=== PATIENT | female | born 1980 | race Two or more races ===

== ENCOUNTER 2016-11-08 13:26 | Emergency (ER) | payer SELFPAY ==
[~2016-11-08] VITALS: Ht 165.1 cm; Wt 81.6 kg
[~2016-11-08 13:26] MED LIST: ESOM20CA PO; IBUP400T21 PO; TRAM50TA2 PO
[2016-11-08 13:39] VITALS: BP 136/84
[2016-11-08 14:38] LABS: Basophils # (auto) 0 uL; Basophils % (auto) 0.2 % (0.0-2.0); Eosinophils # (auto) 0.1 uL; Hematocrit 41.5 % (36.0-46.0); Hemoglobin 13.6 g/dL (12.2-16.2); Lymphocytes # (auto) 2.1 uL; Mean Corpuscular Hemoglobin 29.4 pg (28.0-32.0); Mean Corpuscular Hgb Conc. 32.9 g/dL (32.0-36.0); Mean Corpuscular Volume 89.5 fL (80.0-100.0); Mean Platelet Volume 9.1 fL (7.4-10.4); Monocytes # (auto) 0.3 uL; Monocytes % (auto) 4.2 % (0.0-12.0); Neutrophils # (auto) 5.6 uL; Neutrophils % (auto) 68.6 % (37.0-80.0); Platelet Count (auto) 317 10^3/uL (140-450); Red Cell Distribution Width 15.1 % (11.6-16.0); White Blood Cell 8.1 10^3/uL (4.4-10.8)
[2016-11-08 15:16] LABS: Albumin 3.7 g/dL (3.4-5.0)
[2016-11-08 15:22] LABS: BUN/Creatinine Ratio 15.2; Bilirubin, Total 0.2 mg/dL (0.2-1.0); Total Protein 7.7 g/dL (6.4-8.2)
[2016-11-08] MEDS ORDERED: KETOROLAC TROMETH 60MG/2ML VIAL IM ONE (15:30)
== END 2016-11-08 16:13 | disposition home or self-care (01) ==
LOC: ER 13:26
DX: N20.0 Calculus of kidney (principal); K43.9 Ventral hernia without obstruction or gangrene; Z90.49 Acquired absence of other specified parts of digestive tract
CPT/HCPCS: 36415; 74176; 80053; 84702; 85025; 96372; 99285; J1885

== ENCOUNTER 2016-12-19 22:11 | Emergency (ER) | payer SELFPAY ==
[~2016-12-19] VITALS: Ht 165.1 cm; Wt 72.6 kg
[2016-12-20 01:17] LABS: Basophils # (auto) 0.6 uL; Basophils % (auto) 4.1 % (0.0-2.0); DEFINITIVE VIEW TRANSMISSION; Eosinophils # (auto) 0 uL; Eosinophils % (auto) 0.3 % (0.0-7.0); Hematocrit 43.9 % (36.0-46.0); Hemoglobin 14.4 g/dL (12.2-16.2); Lymphocytes # (auto) 1.9 uL; Lymphocytes % (auto) 12.1 % (10.0-50.0); Mean Corpuscular Hemoglobin 29.2 pg (28.0-32.0); Mean Corpuscular Hgb Conc. 32.8 g/dL (32.0-36.0); Mean Platelet Volume 8.7 fL (7.4-10.4); Monocytes # (auto) 0.8 uL; Neutrophils # (auto) 12.3 uL; Neutrophils % (auto) 78.5 % (37.0-80.0); Platelet Count (auto) 294 10^3/uL (140-450); Red Cell Distribution Width 13.5 % (11.6-16.0); SUSPECT VIEW TRANSMISSION; White Blood Cell 15.6 10^3/uL (4.4-10.8)
[2016-12-20 01:38] LABS: BUN/Creatinine Ratio 10.8; Bilirubin, Total 0.7 mg/dL (0.2-1.0); Calcium 8.6 mg/dL (8.5-10.1); Potassium 3.6 mmol/L (3.5-5.1); Total Protein 8.1 g/dL (6.4-8.2)
[2016-12-20 02:30] LABS: Urine Bilirubin Negative (Negative); Urine Color Yellow (Yellow); Urine Glucose Normal (Normal); Urine Ketone Negative (Negative); Urine Mucus FEW (None Seen); Urine RBC 165 /hpf (0 - 4); Urine Squamous Epithelial Cell FEW /hpf (<5); Urine Urobilinogen Normal (Negative); Urine WBC Clumps PRESENT /hpf (None Seen); Urine pH 5.5 (5.0-8.0)
[2016-12-20 02:33] LABS: Urine Blood 2+ /uL (Negative); Urine Nitrite POSITIVE (Negative)
[2016-12-20] MEDS ORDERED: NITROFURANTOIN (MONO) 100 mg CAP PO ONE (03:30)
[2016-12-20 03:46] VITALS: BP 122/68
== END 2016-12-20 03:47 | disposition home or self-care (01) ==
LOC: ER 22:12
DX: N39.0 Urinary tract infection, site not specified (principal); R06.02 Shortness of breath; R11.0 Nausea; Z90.49 Acquired absence of other specified parts of digestive tract
CPT/HCPCS: 36415; 80053; 81001; 82150; 83690; 84702; 85025

== ENCOUNTER 2017-02-05 08:05 | Inpatient (IN) | payer MEDICAID, OTHER ==
[~2017-02-05] VITALS: Ht 165.1 cm; Wt 94.0 kg
[2017-02-05 09:19] LABS: Urine Bilirubin Negative (Negative); Urine Blood Negative /uL (Negative); Urine Color Yellow (Yellow); Urine Glucose Normal (Normal); Urine Ketone Negative (Negative); Urine Nitrite Negative (Negative); Urine RBC 1 /hpf (0 - 4); Urine Squamous Epithelial Cell FEW /hpf (<5); Urine Urobilinogen Normal (Negative); Urine pH 5.5 (5.0-8.0)
[2017-02-05 09:42] LABS: Basophils # (auto) 0 uL; Basophils % (auto) 0.4 % (0.0-2.0); Eosinophils # (auto) 0.1 uL; Eosinophils % (auto) 1.8 % (0.0-7.0); Hematocrit 42.4 % (36.0-46.0); Hemoglobin 13.9 g/dL (12.2-16.2); Lymphocytes # (auto) 1.7 uL; Lymphocytes % (auto) 26.8 % (10.0-50.0); Mean Corpuscular Hgb Conc. 32.8 g/dL (32.0-36.0); Mean Corpuscular Volume 91.4 fL (80.0-100.0); Mean Platelet Volume 9.1 fL (7.4-10.4); Monocytes # (auto) 0.4 uL; Monocytes % (auto) 5.9 % (0.0-12.0); Neutrophils # (auto) 4.1 uL; Neutrophils % (auto) 65.1 % (37.0-80.0); Platelet Count (auto) 356 10^3/uL (140-450); Red Cell Distribution Width 14.9 % (11.6-16.0); White Blood Cell 6.3 10^3/uL (4.4-10.8)
[2017-02-05 10:08] LABS: Albumin 3.6 g/dL (3.4-5.0); BUN/Creatinine Ratio 15.9; Calcium 8.2 mg/dL (8.5-10.1); Potassium 4.2 mmol/L (3.5-5.1)
[2017-02-05 10:10] LABS: Bilirubin, Total 0.4 mg/dL (0.2-1.0); Total Protein 7.7 g/dL (6.4-8.2)
[2017-02-05] MEDS ORDERED: CIPROFLOXACIN 400MG/200ML 200 ML IV ONE (10:15)
[2017-02-05] MEDS ORDERED: ACETAMINOPHEN 500 MG TAB PO PRN (11:15)
[2017-02-05] MEDS ORDERED: PROMETHAZINE HCL 25 MG/ML 1ML IV PRN (11:15)
[2017-02-05] MEDS ORDERED: LORazepam 0.5 MG TAB PO PRN (11:15)
[2017-02-05] MEDS ORDERED: NITROGLYCERIN 0.4 MG SL TAB SL PRN (11:15)
[2017-02-05] MEDS ORDERED: cefTRIAXone 1GM/50ML D5W 50 ML IV ONE (11:15)
[2017-02-05] MEDS ORDERED: MORPHINE SULF INJ 2 MG/ML SYRINGE 1ML IV PRN (11:15)
[2017-02-05 11:16] LABS: INR 0.9 (0.9-1.15); Prothrombin Time 9.8 sec (9.37-12.3)
[2017-02-05] MEDS: SODIUM CHLORIDE 0.9% 1,000 ML IV SCH ×2 (11:59→21:38)
[2017-02-05] MEDS: FAMOTIDINE (10MG/ML) 2ML VL IV SCH ×2 (11:59→23:43)
[2017-02-05 12:03] LABS: Amylase 19 U/L (25-115)
[2017-02-05 20:30] VITALS: BP 125/74
[2017-02-05] MEDS: MORPHINE SULF INJ 2 MG/ML SYRINGE 1ML IV PRN (21:11)
[2017-02-06 05:11] VITALS: BP 124/71
[2017-02-06] MEDS: MORPHINE SULF INJ 2 MG/ML SYRINGE 1ML IV PRN ×3 (06:38→21:28)
[2017-02-06] MEDS: SODIUM CHLORIDE 0.9% 1,000 ML IV SCH ×2 (06:38→17:15)
[2017-02-06] MEDS ORDERED: ceFAZolin 1GM/50ML D5W 50 ML IV ONE (06:58)
[2017-02-06] MEDS ORDERED: DEXAMETHASONE SOD PHOS 10MG/1ML VIAL INJ ONE (07:21)
[2017-02-06] MEDS ORDERED: ONDANSETRON HCL 4 MG/2 ML VIAL ONE (07:21)
[2017-02-06] MEDS ORDERED: MIDAZOLAM HCL 1MG/1ML-2 ML VIAL ONE (07:21)
[2017-02-06] MEDS ORDERED: fentaNYL CITRATE 100 MCG/2 ML VL ONE (07:21)
[2017-02-06] MEDS ORDERED: KETOROLAC TROMETH 60MG/2ML VIAL IM ONE (07:21)
[2017-02-06] MEDS ORDERED: LIDOCAINE HCL 2 %PF INJ 10ML AMP IJ ONE (07:21)
[2017-02-06] MEDS ORDERED: PROPOFOL 10 MG/ML 20 ML IV ONE (07:21)
[2017-02-06] MEDS ORDERED: GLYCOPYRROLATE 0.2 MG/ML 1ML VIAL IV ONE (07:57)
[2017-02-06] MEDS ORDERED: NEOSTIGMINE 1 MG/ML INJ (10mg/10ML VIAL) IV ONE (07:57)
[2017-02-06 08:00] VITALS: BP 139/88
[2017-02-06] MEDS ORDERED: BUPIVACAINE W/ EPINEPH 0.25% INJ 50ML MDV ONE (08:06)
[2017-02-06] MEDS ORDERED: HYDROmorphone HCL 2 MG/ML VL ONE (09:06)
[2017-02-06] MEDS: HYDROmorphone HCL 2 MG/ML VL IV PRN ×5 (09:10→13:16)
[2017-02-06] MEDS ORDERED: ONDANSETRON HCL 4 MG/2 ML VIAL IV ONE (09:30)
[2017-02-06] MEDS ORDERED: LABETALOL HCL 5 MG/ML 4ML SYRINGE IV PRN (09:30)
[2017-02-06] MEDS ORDERED: KETOROLAC TROMETH 30 MG/ML 1ML VIAL ONE (09:31)
[2017-02-06] MEDS: cefTRIAXone 1GM/50ML D5W 50 ML IV SCH (10:32)
[2017-02-06] MEDS: FAMOTIDINE (10MG/ML) 2ML VL IV SCH (11:06)
[2017-02-06 13:00] VITALS: BP 138/79
[2017-02-06 17:00] VITALS: BP 128/71
[2017-02-06] MEDS: HYDROcodone-ACET 5/325MG TAB PO PRN (18:54)
[2017-02-06 21:30] VITALS: BP 119/61
[2017-02-06] MEDS ORDERED: KETOROLAC TROMETH 30 MG/ML 1ML VIAL IV ONE (21:45)
[2017-02-06] MEDS: TEMAZEPAM 15 MG CAP PO PRN (22:32)
[2017-02-07] MEDS: FAMOTIDINE (10MG/ML) 2ML VL IV SCH ×3 (00:31→22:32)
[2017-02-07] MEDS: HYDROcodone-ACET 5/325MG TAB PO PRN ×3 (00:36→14:41)
[2017-02-07] MEDS: MORPHINE SULF INJ 2 MG/ML SYRINGE 1ML IV PRN ×4 (02:59→18:43)
[2017-02-07] MEDS: SODIUM CHLORIDE 0.9% 1,000 ML IV SCH ×3 (03:28→23:15)
[2017-02-07 05:00] VITALS: BP 103/40
[2017-02-07 05:53] LABS: Basophils # (auto) 0 uL; Basophils % (auto) 0.2 % (0.0-2.0); Eosinophils # (auto) 0 uL; Hematocrit 35.5 % (36.0-46.0); Hemoglobin 11.8 g/dL (12.2-16.2); Lymphocytes # (auto) 1.4 uL; Lymphocytes % (auto) 12.3 % (10.0-50.0); Mean Corpuscular Hemoglobin 30.1 pg (28.0-32.0); Mean Corpuscular Hgb Conc. 33.2 g/dL (32.0-36.0); Mean Corpuscular Volume 90.6 fL (80.0-100.0); Mean Platelet Volume 8.7 fL (7.4-10.4); Monocytes # (auto) 0.4 uL; Monocytes % (auto) 3.3 % (0.0-12.0); Neutrophils # (auto) 9.3 uL; Neutrophils % (auto) 84.2 % (37.0-80.0); Platelet Count (auto) 348 10^3/uL (140-450); Red Cell Distribution Width 14.7 % (11.6-16.0); White Blood Cell 11.1 10^3/uL (4.4-10.8)
[2017-02-07 06:12] LABS: BUN/Creatinine Ratio 19.6; Calcium 7.6 mg/dL (8.5-10.1); Magnesium 2.5 mg/dL (1.6-2.6); Potassium 3.9 mmol/L (3.5-5.1)
[2017-02-07 08:00] VITALS: BP 121/80
[2017-02-07] MEDS: cefTRIAXone 1GM/50ML D5W 50 ML IV SCH (08:04)
[2017-02-07 09:00] VITALS: BP 121/80
[2017-02-07 13:00] VITALS: BP 131/71
[2017-02-07] MEDS: KETOROLAC TROMETH 30 MG/ML 1ML VIAL IV PRN ×2 (16:05→20:17)
[2017-02-07 16:41] VITALS: BP 111/56
[2017-02-07] MEDS: ERTAPENEM SOD INJ 1 GM in SODIUM CHL 0.9% 50 ML IV SCH (20:00)
[2017-02-07 22:10] VITALS: BP 134/80
[2017-02-07] MEDS: MORPHINE SULFATE 4 MG/ML SYRG IV PRN (22:30)
[2017-02-08] MEDS: TEMAZEPAM 15 MG CAP PO PRN ×2 (00:37→22:45)
[2017-02-08 04:44] VITALS: BP 93/54
[2017-02-08] MEDS: MORPHINE SULFATE 4 MG/ML SYRG IV PRN ×3 (06:32→20:00)
[2017-02-08 08:59] VITALS: BP 114/75
[2017-02-08] MEDS: SODIUM CHLORIDE 0.9% 1,000 ML IV SCH ×2 (09:15→20:01)
[2017-02-08] MEDS: HYDROcodone-ACET 5/325MG TAB PO PRN (10:24)
[2017-02-08] MEDS: FAMOTIDINE (10MG/ML) 2ML VL IV SCH ×2 (10:25→22:46)
[2017-02-08] MEDS ORDERED: DOCUSATE SOD 100 MG CAP PO PRN (10:30)
[2017-02-08 13:00] VITALS: BP 129/79
[2017-02-08 16:44] VITALS: BP 111/67
[2017-02-08] MEDS: ERTAPENEM SOD INJ 1 GM in SODIUM CHL 0.9% 50 ML IV SCH (20:01)
[2017-02-08 20:27] VITALS: BP 111/67
[2017-02-08 21:53] VITALS: BP 139/80
[2017-02-08] MEDS: KETOROLAC TROMETH 30 MG/ML 1ML VIAL IV PRN (22:46)
[2017-02-09 04:48] VITALS: BP 96/56
[2017-02-09] MEDS: MORPHINE SULFATE 4 MG/ML SYRG IV PRN (05:52)
[2017-02-09] MEDS: SODIUM CHLORIDE 0.9% 1,000 ML IV SCH (05:52)
[2017-02-09 08:00] VITALS: BP 121/79
[2017-02-09 09:00] VITALS: BP 121/79
[2017-02-09 11:01] VITALS: BP 121/79
[2017-02-09] MEDS: FAMOTIDINE (10MG/ML) 2ML VL IV SCH (11:01)
[2017-02-09] MEDS ORDERED: NITR-48 PO (11:22)
== END 2017-02-09 12:50 | disposition home or self-care (01) | DRG 354 ==
LOC: ER 08:10 → TELE 08:11 → TELE-WESTW 20:15 → WEST WING 02-08 06:14
PROVIDERS: ADMIT Internal Medicine; ATTEND Internal Medicine
PROC: 0WQF0ZZ Repair Abdominal Wall, Open Approach (ICD-10-PCS; principal; 2017-02-06 07:57)
DX: K43.9 Ventral hernia without obstruction or gangrene (principal); N39.0 Urinary tract infection, site not specified; B96.20 Unspecified Escherichia coli [E. coli] as the cause of diseases classified elsewhere; Z16.12 Extended spectrum beta lactamase (ESBL) resistance; K42.9 Umbilical hernia without obstruction or gangrene; Z80.3 Family history of malignant neoplasm of breast; Z90.49 Acquired absence of other specified parts of digestive tract; Z82.49 Family history of ischemic heart disease and other diseases of the circulatory system; Z83.3 Family history of diabetes mellitus
CPT/HCPCS: 36415; 71010; 80048; 80053; 81001; 81025; 82150; 83690; 83735; 85025; 85610; 86850; 86900; 86901; 87040; 87086; 87088; 87186; 96365; 96368; J0690; J0696; J1100; J1335; J1885; J2250; J2405; J2704; J3490

== ENCOUNTER 2017-06-15 09:38 | Emergency (ER) | payer MEDICAID ==
[~2017-06-15] VITALS: Ht 165.1 cm; Wt 88.5 kg
[~2017-06-15 09:38] MED LIST changes: -ESOM20CA PO; -IBUP400T21 PO; +NITR-48 PO; -TRAM50TA2 PO
[2017-06-15 09:52] VITALS: BP 136/78
[2017-06-15 10:47] LABS: Basophils # (auto) 0 uL; Basophils % (auto) 0.5 % (0.0-2.0); Eosinophils # (auto) 0.1 uL; Eosinophils % (auto) 1.1 % (0.0-7.0); Hematocrit 40.8 % (36.0-46.0); Hemoglobin 13.2 g/dL (12.2-16.2); Lymphocytes # (auto) 2.2 uL; Lymphocytes % (auto) 26.2 % (10.0-50.0); Mean Corpuscular Hgb Conc. 32.5 g/dL (32.0-36.0); Mean Corpuscular Volume 92.4 fL (80.0-100.0); Mean Platelet Volume 9.5 fL (6.9-10.8); Monocytes # (auto) 0.5 uL; Monocytes % (auto) 6.3 % (0.0-12.0); Neutrophils # (auto) 5.6 uL; Neutrophils % (auto) 65.9 % (37.0-80.0); Nucleated Red Blood Cells % 0.4 %; Platelet Count (auto) 255 10^3/uL (140-450); Red Cell Distribution Width 13.6 % (11.8-14.3); White Blood Cell 8.5 10^3/uL (4.4-10.8)
[2017-06-15 11:12] LABS: Albumin 3.5 g/dL (3.4-5.0); BUN/Creatinine Ratio 13.2; Calcium 8.3 mg/dL (8.5-10.1); Potassium 3.9 mmol/L (3.5-5.1)
[2017-06-15 11:15] LABS: Bilirubin, Total 0.3 mg/dL (0.2-1.0); Total Protein 7.2 g/dL (6.4-8.2)
[2017-06-15] MEDS ORDERED: SODIUM CHLORIDE 0.9% 1,000 ML IV ONE (11:15)
[2017-06-15 11:19] LABS: Platelet Clumps FEW; Platelet Estimate Adequate
== END 2017-06-15 14:48 | disposition home or self-care (01) ==
LOC: ER 09:38
DX: M79.604 Pain in right leg (principal); O26.891 Other specified pregnancy related conditions, first trimester; M79.605 Pain in left leg
CPT/HCPCS: 36415; 80053; 84702; 85025; 96360; 99284; J7030

== ENCOUNTER 2017-06-21 02:42 | Emergency (ER) | payer MEDICAID ==
[~2017-06-21] VITALS: Ht 165.1 cm; Wt 90.3 kg
[2017-06-21 02:51] VITALS: BP 134/72
[2017-06-21 04:08] LABS: Basophils # (auto) 0 uL; Basophils % (auto) 0.3 % (0.0-2.0); Eosinophils # (auto) 0.1 uL; Hematocrit 40.9 % (36.0-46.0); Hemoglobin 13.5 g/dL (12.2-16.2); Lymphocytes # (auto) 2.2 uL; Lymphocytes % (auto) 24.5 % (10.0-50.0); Mean Corpuscular Hemoglobin 29.8 pg (28.0-32.0); Mean Corpuscular Hgb Conc. 32.9 g/dL (32.0-36.0); Mean Corpuscular Volume 90.6 fL (80.0-100.0); Mean Platelet Volume 8.8 fL (6.9-10.8); Monocytes # (auto) 0.5 uL; Monocytes % (auto) 5.9 % (0.0-12.0); Neutrophils # (auto) 6.2 uL; Neutrophils % (auto) 68.3 % (37.0-80.0); Platelet Count (auto) 262 10^3/uL (140-450); Red Cell Distribution Width 13.6 % (11.8-14.3); White Blood Cell 9.1 10^3/uL (4.4-10.8)
[2017-06-21 04:44] LABS: Albumin 3.6 g/dL (3.4-5.0); Alkaline Phosphatase 70 U/L (45-117); Anion Gap 11 (5-15); Aspartate Aminotransferase 16 U/L (15-37); BUN/Creatinine Ratio 15.6; Bilirubin, Total 0.3 mg/dL (0.2-1.0); Blood Urea Nitrogen 10 mg/dL (7-18); Calcium 8.8 mg/dL (8.5-10.1); Carbon Dioxide 24 mmol/L (21-32); Chloride 105 mmol/L (98-107); GFR African American 135 mL/min; GFR Non-African American 112 mL/min; Glucose 124 mg/dL (74-106); Magnesium 2.1 mg/dL (1.6-2.6); Potassium 3.7 mmol/L (3.5-5.1); Sodium 140 mmol/L (136-145); Total Protein 7.5 g/dL (6.4-8.2)
== END 2017-06-21 06:43 | disposition left against medical advice (07) ==
LOC: ER 02:44
DX: O26.891 Other specified pregnancy related conditions, first trimester (principal); R00.2 Palpitations; R07.89 Other chest pain; Z53.21 Procedure and treatment not carried out due to patient leaving prior to being seen by health care provider; Z3A.01 Less than 8 weeks gestation of pregnancy
CPT/HCPCS: 36415; 80053; 83735; 84443; 84484; 84702; 85025; 93005

== ENCOUNTER 2017-07-29 17:03 | Emergency (ER) | payer MEDICAID ==
[~2017-07-29] VITALS: Ht 165.1 cm; Wt 89.8 kg
[2017-07-29 17:27] VITALS: BP 124/71
[2017-07-29 17:56] LABS: Basophils # (auto) 0.1 uL; Basophils % (auto) 0.7 % (0.0-2.0); Eosinophils # (auto) 0 uL; Eosinophils % (auto) 0.3 % (0.0-7.0); Hematocrit 40.4 % (36.0-46.0); Hemoglobin 13.3 g/dL (12.2-16.2); Lymphocytes # (auto) 1.3 uL; Lymphocytes % (auto) 12.5 % (10.0-50.0); Mean Corpuscular Hemoglobin 29.6 pg (28.0-32.0); Mean Corpuscular Volume 89.7 fL (80.0-100.0); Monocytes # (auto) 0.5 uL; Neutrophils # (auto) 8.3 uL; Neutrophils % (auto) 81.5 % (37.0-80.0); Platelet Count (auto) 237 10^3/uL (140-450); Red Cell Distribution Width 12.9 % (11.8-14.3); White Blood Cell 10.2 10^3/uL (4.4-10.8)
[2017-07-29 18:19] LABS: Albumin 3.4 g/dL (3.4-5.0); Alkaline Phosphatase 69 U/L (45-117); Anion Gap 11 (5-15); Aspartate Aminotransferase 7 U/L (15-37); BUN/Creatinine Ratio 7.8; Bilirubin, Total 0.4 mg/dL (0.2-1.0); Blood Urea Nitrogen 4 mg/dL (7-18); Calcium 8.6 mg/dL (8.5-10.1); Carbon Dioxide 21 mmol/L (21-32); Chloride 103 mmol/L (98-107); GFR African American 175 mL/min; GFR Non-African American 145 mL/min; Glucose 113 mg/dL (74-106); Potassium 3.4 mmol/L (3.5-5.1); Sodium 135 mmol/L (136-145); Total Protein 7.7 g/dL (6.4-8.2)
[2017-07-29 19:35] LABS: Urine Bilirubin Negative (Negative); Urine Blood Negative /uL (Negative); Urine Color Yellow (Yellow); Urine Glucose Normal (Normal); Urine Ketone 3+ (Negative); Urine Mucus FEW (None Seen); Urine Nitrite POSITIVE (Negative); Urine RBC 7 /hpf (0 - 4); Urine Squamous Epithelial Cell FEW /hpf (<5); Urine Urobilinogen Normal (Negative); Urine pH 5.5 (5.0-8.0)
[2017-07-29] MEDS ORDERED: ONDANSETRON HCL 4 MG/2 ML VIAL IV ONE (19:45)
[2017-07-29] MEDS ORDERED: SODIUM CHLORIDE 0.9% 1,000 ML IV ONE ×2 (19:45)
[2017-07-29] MEDS ORDERED: PIPERACILLIN-TAZOB 3.375GM 0 ML IV ONE (19:54)
[2017-07-29] MEDS ORDERED: PIPERACILLIN-TAZOB 2.25GM 50 ML IV ONE ×2 (20:00)
== END 2017-07-29 22:08 | disposition home or self-care (01) ==
LOC: ER 17:08
DX: O23.41 Unspecified infection of urinary tract in pregnancy, first trimester (principal); O09.521 Supervision of elderly multigravida, first trimester; O99.281 Endocrine, nutritional and metabolic diseases complicating pregnancy, first trimester; E86.0 Dehydration; O99.89 Other specified diseases and conditions complicating pregnancy, childbirth and the puerperium; N13.30 Unspecified hydronephrosis; Z3A.13 13 weeks gestation of pregnancy
CPT/HCPCS: 36415; 76801; 80053; 81001; 84484; 84702; 85025; 96365; 96366; 99285; J2543; J7030

== ENCOUNTER 2017-08-27 10:32 | Emergency (ER) | payer MEDICAID ==
[~2017-08-27] VITALS: Ht 165.1 cm; Wt 89.4 kg
[2017-08-27 11:11] LABS: Basophils # (auto) 0 uL; Basophils % (auto) 0.1 % (0.0-2.0); Eosinophils # (auto) 0.1 uL; Eosinophils % (auto) 0.5 % (0.0-7.0); Hematocrit 40.4 % (36.0-46.0); Hemoglobin 13.2 g/dL (12.2-16.2); Lymphocytes # (auto) 1.6 uL; Lymphocytes % (auto) 16.9 % (10.0-50.0); Mean Corpuscular Hemoglobin 28.6 pg (28.0-32.0); Mean Corpuscular Hgb Conc. 32.6 g/dL (32.0-36.0); Mean Corpuscular Volume 87.6 fL (80.0-100.0); Monocytes # (auto) 0.3 uL; Monocytes % (auto) 3.5 % (0.0-12.0); Neutrophils # (auto) 7.5 uL; Platelet Count (auto) 387 10^3/uL (140-450); Red Blood Cells 4.61 10^6/uL (4.0-5.20); Red Cell Distribution Width 13.4 % (11.8-14.3); White Blood Cell 9.5 10^3/uL (4.4-10.8)
[2017-08-27 11:28] LABS: Albumin 3.1 g/dL (3.4-5.0); BUN/Creatinine Ratio 9.6; Bilirubin, Total 0.3 mg/dL (0.2-1.0); Calcium 8.5 mg/dL (8.5-10.1); Potassium 3.8 mmol/L (3.5-5.1); Total Protein 7.3 g/dL (6.4-8.2)
[2017-08-27 12:00] LABS: Urine Bacteria NONE SEEN /hpf (None Seen); Urine Blood Negative /uL (Negative); Urine Mucus FEW (None Seen); Urine Specific Gravity 1.015 (1.001-1.035); Urine WBC 2 /hpf (0 - 5)
[2017-08-27 12:45] VITALS: BP 116/74
[2017-09-26] MEDS ORDERED: PREN-96 PO (06:44)
[2017-09-29] MEDS ORDERED: VANC125PO PO (09:10)
== END 2017-08-27 13:50 | disposition home or self-care (01) ==
LOC: ER 10:32
DX: O00.90 Unspecified ectopic pregnancy without intrauterine pregnancy (principal); O09.522 Supervision of elderly multigravida, second trimester; Z45.2 Encounter for adjustment and management of vascular access device; Z3A.16 16 weeks gestation of pregnancy
CPT/HCPCS: 36415; 80053; 81001; 85025; 87086

== ENCOUNTER 2017-09-02 22:15 | Observation (INO) | payer MEDICAID ==
[~2017-09-02] VITALS: Ht 165.1 cm; Wt 89.4 kg
[2017-09-02 23:46] LABS: Basophils # (auto) 0 uL; Basophils % (auto) 0.2 % (0.0-2.0); Eosinophils # (auto) 0.1 uL; Eosinophils % (auto) 1.4 % (0.0-7.0); Hemoglobin 11.9 g/dL (12.2-16.2); Lymphocytes # (auto) 1.8 uL; Lymphocytes % (auto) 21.6 % (10.0-50.0); Mean Corpuscular Hemoglobin 28.5 pg (28.0-32.0); Mean Corpuscular Hgb Conc. 33.1 g/dL (32.0-36.0); Mean Corpuscular Volume 85.9 fL (80.0-100.0); Monocytes # (auto) 0.4 uL; Monocytes % (auto) 5.3 % (0.0-12.0); Neutrophils # (auto) 6.1 uL; Neutrophils % (auto) 71.5 % (37.0-80.0); Nucleated Red Blood Cells % 0.1 %; Platelet Count (auto) 281 10^3/uL (140-450); Red Blood Cells 4.19 10^6/uL (4.0-5.20); Red Cell Distribution Width 13.7 % (11.8-14.3); White Blood Cell 8.5 10^3/uL (4.4-10.8)
[2017-09-03 00:02] LABS: BUN/Creatinine Ratio 12.5; Calcium 8.3 mg/dL (8.5-10.1); Potassium 3.6 mmol/L (3.5-5.1)
[2017-09-03 00:04] LABS: Bilirubin, Total 0.2 mg/dL (0.2-1.0); Total Protein 6.7 g/dL (6.4-8.2)
[2017-09-03 00:20] LABS: Urine Bacteria NONE SEEN /hpf (None Seen); Urine Blood Negative /uL (Negative); Urine Mucus FEW (None Seen); Urine Specific Gravity 1.021 (1.001-1.035); Urine WBC 1 /hpf (0 - 5)
[2017-09-03] MEDS ORDERED: ACETAMINOPHEN 325 MG TAB PO ONE (01:45)
[2017-09-03 05:27] VITALS: BP 109/62
[2017-09-26] MEDS ORDERED: PREN-96 PO (06:44)
[2017-09-29] MEDS ORDERED: VANC125PO PO (09:10)
== END 2017-09-03 08:01 | disposition left against medical advice (07) | DRG 566 ==
LOC: ER 22:15 → OVERFLOW 22:16 → ER 09-03 08:01
PROVIDERS: ADMIT Emergency Medicine; ATTEND Emergency Medicine
DX: O26.892 Other specified pregnancy related conditions, second trimester (principal); A04.72 Enterocolitis due to Clostridium difficile, not specified as recurrent; R10.9 Unspecified abdominal pain; O99.112 Other diseases of the blood and blood-forming organs and certain disorders involving the immune mechanism complicating pregnancy, second trimester; Z3A.18 18 weeks gestation of pregnancy; Z87.59 Personal history of other complications of pregnancy, childbirth and the puerperium; Z82.49 Family history of ischemic heart disease and other diseases of the circulatory system
CPT/HCPCS: 36415; 76805; 80053; 81001; 84702; 85025; 87045; 87899; 99285; G0378

== ENCOUNTER 2017-09-26 04:22 | Observation (INO) | payer MEDICAID ==
[~2017-09-26] VITALS: Ht 165.1 cm; Wt 89.4 kg
[2017-09-26] MEDS ORDERED: cefTRIAXone 1GM/10ml IVPUSH 20 ML IV ONE (05:30)
[2017-09-26] MEDS ORDERED: CEFTRIAXONE SODIUM 2 GM in D5W 5% 50 ML IV ONE (05:30)
[2017-09-26 05:43] LABS: Urine Bacteria NONE SEEN /hpf (None Seen); Urine Blood Negative /uL (Negative); Urine Mucus FEW (None Seen); Urine Specific Gravity 1.023 (1.001-1.035); Urine WBC 2 /hpf (0 - 5)
[2017-09-26 05:51] LABS: Alcohol, Urine < 3.0 mg/dL (0-5); Amphetamine Screen, Urine NEGATIVE (NEGATIVE); Barbiturate Scree,Urine NEGATIVE (NEGATIVE); Benzodiazephine Screen, Urine NEGATIVE (NEGATIVE); Cannabinoid Screen, Urine NEGATIVE (NEGATIVE); Cocaine Screen, Urine NEGATIVE (NEGATIVE); Opiate Scree,Urine NEGATIVE (NEGATIVE); Phencyclidine Screen, Urine NEGATIVE (NEGATIVE)
[2017-09-26 05:57] LABS: Basophils # (auto) 0.1 uL; Basophils % (auto) 0.3 % (0.0-2.0); Eosinophils # (auto) 0 uL; Eosinophils % (auto) 0.2 % (0.0-7.0); Hematocrit 34.6 % (36.0-46.0); Hemoglobin 11.4 g/dL (12.2-16.2); Lymphocytes # (auto) 1.4 uL; Lymphocytes % (auto) 7.7 % (10.0-50.0); Mean Corpuscular Hemoglobin 28.2 pg (28.0-32.0); Mean Corpuscular Hgb Conc. 32.9 g/dL (32.0-36.0); Mean Corpuscular Volume 85.8 fL (80.0-100.0); Monocytes # (auto) 0.8 uL; Monocytes % (auto) 4.7 % (0.0-12.0); Neutrophils # (auto) 15.8 uL; Neutrophils % (auto) 87.1 % (37.0-80.0); Platelet Count (auto) 264 10^3/uL (140-450); Red Blood Cells 4.03 10^6/uL (4.0-5.20); Red Cell Distribution Width 14.1 % (11.8-14.3); White Blood Cell 18.1 10^3/uL (4.4-10.8)
[2017-09-26 06:15] LABS: Albumin 2.6 g/dL (3.4-5.0); Calcium 8.4 mg/dL (8.5-10.1); Potassium 3.7 mmol/L (3.5-5.1)
[2017-09-26 06:16] LABS: BUN/Creatinine Ratio 11.5
[2017-09-26 06:19] LABS: Bilirubin, Total 0.4 mg/dL (0.2-1.0); Total Protein 6.6 g/dL (6.4-8.2)
[2017-09-26] MEDS ORDERED: PREN-96 PO ×2 (06:44)
[2017-09-26] MEDS ORDERED: LACTATED RINGER'S 1,000 ML IV SCH (07:30)
== END 2017-09-26 08:45 | disposition other institution (70) | DRG 566 ==
LOC: LDRP 04:22
PROVIDERS: ADMIT Specialist; ATTEND Specialist
DX: O26.892 Other specified pregnancy related conditions, second trimester (principal); R68.83 Chills (without fever); R19.7 Diarrhea, unspecified; R10.9 Unspecified abdominal pain; R05 Cough; Z3A.22 22 weeks gestation of pregnancy
CPT/HCPCS: 36415; 59025; 80053; 80307; 81001; 85025; 87493; 96365; G0378; J7030

== ENCOUNTER 2017-09-26 09:02 | Inpatient (IN) | payer MEDICAID ==
[~2017-09-26] VITALS: Ht 165.1 cm; Wt 97.4 kg
[~2017-09-26 09:02] MED LIST changes: +PREN-96 PO
[2017-09-26] MEDS ORDERED: SODIUM CHLORIDE 0.9% 1,000 ML IVB ONE (09:32)
[2017-09-26] MEDS ORDERED: SODIUM CHLORIDE 0.9% 1,000 ML IV ONE (10:00)
[2017-09-26 10:05] LABS: Magnesium 1.7 mg/dL (1.6-2.6)
[2017-09-26] MEDS ORDERED: ACETAMINOPHEN 325 MG TAB PO ONE ×2 (12:58→13:15)
[2017-09-26] MEDS ORDERED: NITROGLYCERIN 0.4 MG SL TAB SL PRN (13:45)
[2017-09-26] MEDS ORDERED: ACETAMINOPHEN 500 MG TAB PO PRN (13:45)
[2017-09-26] MEDS ORDERED: metroNIDAZOLE 500 MG TAB PO SCH (14:00)
[2017-09-26] MEDS: SODIUM CHLORIDE 0.9% 1,000 ML IV SCH ×3 (14:00→18:55)
[2017-09-26] MEDS ORDERED: VANCOMYCIN HCL 125MG/5ML ORAL SOL PO ONE (14:15)
[2017-09-26 14:54] LABS: CRP High Sensitivity 9.65 mg/dL (< 0.3)
[2017-09-26 17:41] VITALS: BP 103/57
[2017-09-26 18:00] VITALS: BP 103/57
[2017-09-26] MEDS: VANCOMYCIN HCL 125MG/5ML ORAL SOL PO SCH ×2 (18:55→22:07)
[2017-09-26 20:00] VITALS: BP 107/55
[2017-09-26 22:56] VITALS: BP 107/55
[2017-09-27] VITALS (7 sets, daily range): BP systolic 91–128; BP diastolic 48–94
[2017-09-27] MEDS: SODIUM CHLORIDE 0.9% 1,000 ML IV SCH ×2 (03:54→13:11)
[2017-09-27 05:50] LABS: Basophils # (auto) 0 uL; Basophils % (auto) 0.2 % (0.0-2.0); Eosinophils # (auto) 0.1 uL; Eosinophils % (auto) 1.5 % (0.0-7.0); Hematocrit 29.5 % (36.0-46.0); Hemoglobin 9.9 g/dL (12.2-16.2); Lymphocytes # (auto) 1.9 uL; Mean Corpuscular Hemoglobin 28.7 pg (28.0-32.0); Mean Corpuscular Hgb Conc. 33.6 g/dL (32.0-36.0); Mean Corpuscular Volume 85.4 fL (80.0-100.0); Monocytes # (auto) 0.4 uL; Monocytes % (auto) 5.3 % (0.0-12.0); Neutrophils # (auto) 5.4 uL; Nucleated Red Blood Cells % 0.1 %; Platelet Count (auto) 235 10^3/uL (140-450); Red Blood Cells 3.45 10^6/uL (4.0-5.20); Red Cell Distribution Width 14.4 % (11.8-14.3); White Blood Cell 7.8 10^3/uL (4.4-10.8)
[2017-09-27] MEDS: VANCOMYCIN HCL 125MG/5ML ORAL SOL PO SCH ×4 (06:02→22:11)
[2017-09-27 06:25] LABS: Albumin 2.2 g/dL (3.4-5.0); BUN/Creatinine Ratio 8.3; Bilirubin, Total 0.2 mg/dL (0.2-1.0); Calcium 7.5 mg/dL (8.5-10.1); Potassium 3.2 mmol/L (3.5-5.1); Total Protein 5.6 g/dL (6.4-8.2)
[2017-09-27] MEDS: PRENATAL VITAMIN TAB PO SCH (10:09)
[2017-09-27] MEDS ORDERED: POTASSIUM CHL 20MEQ/100ML 100 ML IV ONE (10:30)
[2017-09-28] VITALS (7 sets, daily range): BP systolic 85–115; BP diastolic 49–59
[2017-09-28] MEDS: SODIUM CHLORIDE 0.9% 1,000 ML IV SCH ×2 (01:15→09:35)
[2017-09-28] MEDS: VANCOMYCIN HCL 125MG/5ML ORAL SOL PO SCH ×4 (05:50→22:08)
[2017-09-28 06:34] LABS: Basophils # (auto) 0 uL; Basophils % (auto) 0.1 % (0.0-2.0); Eosinophils # (auto) 0.1 uL; Eosinophils % (auto) 1.7 % (0.0-7.0); Hematocrit 29.6 % (36.0-46.0); Lymphocytes # (auto) 1.9 uL; Lymphocytes % (auto) 26.7 % (10.0-50.0); Mean Corpuscular Hemoglobin 29.2 pg (28.0-32.0); Mean Corpuscular Hgb Conc. 33.9 g/dL (32.0-36.0); Mean Corpuscular Volume 85.9 fL (80.0-100.0); Monocytes # (auto) 0.3 uL; Monocytes % (auto) 4.9 % (0.0-12.0); Neutrophils # (auto) 4.7 uL; Neutrophils % (auto) 66.6 % (37.0-80.0); Nucleated Red Blood Cells % 0.1 %; Platelet Count (auto) 242 10^3/uL (140-450); Red Blood Cells 3.44 10^6/uL (4.0-5.20); Red Cell Distribution Width 14.2 % (11.8-14.3); White Blood Cell 7.1 10^3/uL (4.4-10.8)
[2017-09-28] MEDS: PRENATAL VITAMIN TAB PO SCH (09:35)
[2017-09-28] MEDS ORDERED: POTASSIUM CHL 20 Meq TABLET PO ONE (14:30)
[2017-09-29 05:34] VITALS: BP 95/52
[2017-09-29] MEDS: VANCOMYCIN HCL 125MG/5ML ORAL SOL PO SCH ×2 (05:53→11:38)
[2017-09-29 08:00] VITALS: BP 89/49
[2017-09-29 09:00] VITALS: BP 104/60
[2017-09-29] MEDS ORDERED: VANC125PO PO ×2 (09:10)
[2017-09-29] MEDS: PRENATAL VITAMIN TAB PO SCH (09:38)
[2017-09-29 09:51] VITALS: BP 104/60
== END 2017-09-29 12:50 | disposition home or self-care (01) | DRG 566 ==
LOC: ER 09:02 → TELE 09:03 → TELE-EAST 15:20 → EAST 09-28 14:07
PROVIDERS: ADMIT Internal Medicine; ATTEND Internal Medicine
DX: O99.612 Diseases of the digestive system complicating pregnancy, second trimester (principal); E43 Unspecified severe protein-calorie malnutrition; A04.71 Enterocolitis due to Clostridium difficile, recurrent; E87.1 Hypo-osmolality and hyponatremia; O23.42 Unspecified infection of urinary tract in pregnancy, second trimester; O25.12 Malnutrition in pregnancy, second trimester; O99.282 Endocrine, nutritional and metabolic diseases complicating pregnancy, second trimester; J06.9 Acute upper respiratory infection, unspecified; E87.6 Hypokalemia; A04.72 Enterocolitis due to Clostridium difficile, not specified as recurrent; O99.112 Other diseases of the blood and blood-forming organs and certain disorders involving the immune mechanism complicating pregnancy, second trimester; D72.829 Elevated white blood cell count, unspecified; O99.512 Diseases of the respiratory system complicating pregnancy, second trimester; Z3A.22 22 weeks gestation of pregnancy; Z82.49 Family history of ischemic heart disease and other diseases of the circulatory system; Z80.3 Family history of malignant neoplasm of breast; Z83.3 Family history of diabetes mellitus; Z87.440 Personal history of urinary (tract) infections; Z87.59 Personal history of other complications of pregnancy, childbirth and the puerperium; O09.522 Supervision of elderly multigravida, second trimester; Z68.35 Body mass index [BMI] 35.0-35.9, adult; Z90.49 Acquired absence of other specified parts of digestive tract
CPT/HCPCS: 36415; 76805; 80053; 82150; 83690; 83735; 84132; 85025; 85048; 85652; 86141; 87040; 87045; 87081; 87086; 87177; 87400; 87899; J3480

== ENCOUNTER 2017-11-13 16:57 | Observation (INO) | payer MEDICAID ==
[~2017-11-13 16:57] MED LIST changes: -NITR-48 PO; +VANC125PO PO
[2017-11-13] MEDS ORDERED: TERBUTALINE SULFATE 1 MG/ML 1ML VIAL SC SCH (17:45)
[2017-11-13 18:10] LABS: Urine Bacteria NONE SEEN /hpf (None Seen); Urine Blood Negative /uL (Negative); Urine Mucus FEW (None Seen); Urine Specific Gravity 1.014 (1.001-1.035); Urine WBC 1 /hpf (0 - 5)
[2017-11-13 18:53] LABS: Alcohol, Urine < 3.0 mg/dL (0-5); Amphetamine Screen, Urine NEGATIVE (NEGATIVE); Barbiturate Scree,Urine NEGATIVE (NEGATIVE); Benzodiazephine Screen, Urine NEGATIVE (NEGATIVE); Cocaine Screen, Urine NEGATIVE (NEGATIVE); Opiate Scree,Urine NEGATIVE (NEGATIVE); Phencyclidine Screen, Urine NEGATIVE (NEGATIVE)
[2017-11-13 18:58] LABS: Cannabinoid Screen, Urine NEGATIVE (NEGATIVE)
== END 2017-11-13 19:19 | disposition home or self-care (01) | DRG 563 ==
LOC: LDRP 16:57
PROVIDERS: ADMIT Obstetrics & Gynecology; ATTEND Obstetrics & Gynecology
DX: O60.03 Preterm labor without delivery, third trimester (principal); O26.893 Other specified pregnancy related conditions, third trimester; M54.5 Low back pain; Z3A.28 28 weeks gestation of pregnancy
CPT/HCPCS: 59025; 80307; 81001; 81002; 96372; G0378; J3105

== ENCOUNTER 2018-04-01 11:37 | Emergency (ER) | payer MEDICAID ==
[~2018-04-01] VITALS: Ht 165.1 cm; Wt 83.9 kg
[2018-04-01 11:53] VITALS: BP 139/92
== END 2018-04-01 12:31 | disposition home or self-care (01) ==
LOC: ER 11:42
DX: M79.641 Pain in right hand (principal); Z48.02 Encounter for removal of sutures; Z90.49 Acquired absence of other specified parts of digestive tract
CPT/HCPCS: 73130

== ENCOUNTER 2018-09-09 14:29 | Emergency (ER) | payer BC, MEDICAID ==
[~2018-09-09] VITALS: Ht 165.1 cm; Wt 89.4 kg
[2018-09-09] MEDS ORDERED: PANTOPRAZOLE 40 MG TAB PO ONE (14:45)
[2018-09-09 15:17] LABS: Basophils # (auto) 0 uL; Basophils % (auto) 0.5 % (0.0-2.0); Eosinophils # (auto) 0.1 uL; Eosinophils % (auto) 1.5 % (0.0-7.0); Hemoglobin 13.9 g/dL (12.2-16.2); Lymphocytes % (auto) 26.9 % (10.0-50.0); Mean Corpuscular Hgb Conc. 33.1 g/dL (32.0-36.0); Mean Corpuscular Volume 90.6 fL (80.0-100.0); Monocytes # (auto) 0.5 uL; Monocytes % (auto) 6.5 % (0.0-12.0); Neutrophils # (auto) 4.7 uL; Neutrophils % (auto) 64.6 % (37.0-80.0); Nucleated Red Blood Cells % 0.2 %; Platelet Count (auto) 274 10^3/uL (140-450); Red Blood Cells 4.64 10^6/uL (4.0-5.20); Red Cell Distribution Width 14.3 % (11.8-14.3); White Blood Cell 7.3 10^3/uL (4.4-10.8)
[2018-09-09 16:12] LABS: Albumin 3.6 g/dL (3.4-5.0); Calcium 7.8 mg/dL (8.5-10.1); Potassium 3.9 mmol/L (3.5-5.1)
[2018-09-09 16:15] LABS: Bilirubin, Total 0.2 mg/dL (0.2-1.0); Total Protein 7.4 g/dL (6.4-8.2)
[2018-09-09 17:42] VITALS: BP 131/83
== END 2018-09-09 17:45 | disposition home or self-care (01) ==
LOC: ER 14:33
DX: K43.9 Ventral hernia without obstruction or gangrene (principal); Z90.49 Acquired absence of other specified parts of digestive tract
CPT/HCPCS: 36415; 74176; 80053; 82150; 83690; 85025

== ENCOUNTER 2018-09-15 09:06 | Inpatient (IN) | payer BC ==
[~2018-09-15] VITALS: Ht 165.1 cm; Wt 95.8 kg
[2018-09-15] MEDS ORDERED: SODIUM CHLORIDE 0.9% 1,000 ML IV ONE (09:27)
[2018-09-15 09:52] LABS: Urine Bacteria FEW /hpf (None Seen); Urine Blood Negative /uL (Negative); Urine Mucus FEW (None Seen); Urine Specific Gravity 1.024 (1.001-1.035); Urine WBC 2 /hpf (0 - 5)
[2018-09-15 09:54] LABS: Basophils # (auto) 0 uL; Basophils % (auto) 0.7 % (0.0-2.0); Eosinophils # (auto) 0.1 uL; Hematocrit 42.3 % (36.0-46.0); Lymphocytes # (auto) 1.6 uL; Lymphocytes % (auto) 30.2 % (10.0-50.0); Mean Corpuscular Hemoglobin 29.7 pg (28.0-32.0); Mean Corpuscular Volume 90.1 fL (80.0-100.0); Monocytes # (auto) 0.4 uL; Monocytes % (auto) 6.9 % (0.0-12.0); Neutrophils # (auto) 3.3 uL; Neutrophils % (auto) 60.2 % (37.0-80.0); Platelet Count (auto) 268 10^3/uL (140-450); Red Cell Distribution Width 14.3 % (11.8-14.3); White Blood Cell 5.5 10^3/uL (4.4-10.8)
[2018-09-15 10:09] LABS: INR 0.9 (0.9-1.15); Partial Thromboplastin Time 25.9 sec (23.78-33.04); Prothrombin Time 9.7 sec (9.27-12.13)
[2018-09-15 10:14] LABS: Chloride 110 mmol/L (98-107); Potassium 3.8 mmol/L (3.5-5.1); Sodium 139 mmol/L (136-145)
[2018-09-15 10:22] LABS: Alanine Aminotransferase 74 U/L (13-56); Albumin 3.7 g/dL (3.4-5.0); Alkaline Phosphatase 96 U/L (45-117); Anion Gap 8 (5-15); Aspartate Aminotransferase 35 U/L (15-37); BUN/Creatinine Ratio 15.2; Bilirubin, Total 0.5 mg/dL (0.2-1.0); Blood Urea Nitrogen 10 mg/dL (7-18); Carbon Dioxide 21 mmol/L (21-32); GFR African American > 60 mL/min; GFR Non-African American > 60 mL/min; Glucose 105 mg/dL (74-106); Lipase 93 U/L (73-393); Magnesium 2.3 mg/dL (1.6-2.6); Total Protein 7.2 g/dL (6.4-8.2)
[2018-09-15] MEDS ORDERED: ceFAZolin 1GM/50ML 50 ML IV ONE (11:14)
[2018-09-15] MEDS ORDERED: LIDOCAINE 1% INJ PF 5ML AMP ONE (12:30)
[2018-09-15] MEDS ORDERED: ROCURONIUM 10MG/ML 10ML VIAL IV ONE (12:54)
[2018-09-15] MEDS ORDERED: SUCCINYLCHOLINE CHLORIDE 20 MG/ML 10ML VIAL IV ONE (12:54)
[2018-09-15] MEDS ORDERED: BUPIVACAINE W/ EPINEPH 0.25% INJ 50ML MDV ONE (13:01)
[2018-09-15] MEDS ORDERED: MIDAZOLAM HCL 1MG/1ML-2 ML VIAL ONE ×2 (13:02→13:09)
[2018-09-15] MEDS ORDERED: PROPOFOL 10 MG/ML 20 ML IV ONE (13:09)
[2018-09-15] MEDS ORDERED: METOCLOPRAMIDE HCL 5MG/ml INJ 2ml VIAL ONE (13:42)
[2018-09-15] MEDS ORDERED: fentaNYL CITRATE 100 MCG/2 ML VL ONE (13:49)
[2018-09-15] MEDS ORDERED: HYDROmorphone HCL 2 MG/ML VL IV PRN (14:00)
[2018-09-15] MEDS ORDERED: ONDANSETRON HCL 4 MG/2 ML VIAL IV ONE (14:00)
[2018-09-15] MEDS ORDERED: NALOXONE HCL 0.4 MG/ML VIAL IV PRN (14:00)
[2018-09-15] MEDS ORDERED: ceFAZolin 1GM VL ONE (14:18)
[2018-09-15] MEDS ORDERED: KETOROLAC TROMETH 30 MG/ML 1ML VIAL ONE (14:36)
[2018-09-15] MEDS ORDERED: GLYCOPYRROLATE 0.2 MG/ML 1ML VIAL ONE (14:37)
[2018-09-15] MEDS ORDERED: NEOSTIGMINE 1 MG/ML INJ (10mg/10ML VIAL) ONE (14:37)
[2018-09-15] MEDS: HYDROmorphone HCL 2 MG/ML VL IV PRN ×4 (14:50→15:55)
--- NOTE | 2018-09-15 15:00 | NUR ---
Med/Surg admit from PACU [facility] admitted to Med/Surg unit after SBAR received. Patient oriented to Lynn Almaraz, primary RN, unit, room, bed, and unit policies regarding patient care and visiting hours. Patient on room air, o2 saturation 91%.safety precautions in place including bed set to lowest position/locked. Bedside rails up x2. Call light within reach. Instructed patient to call for assistance. Patient verbalized understanding. Will continue to monitor Q 1hr and PRN.
[2018-09-15] MEDS ORDERED: NITROGLYCERIN 0.4 MG SL TAB SL PRN (17:45)
[2018-09-15] MEDS ORDERED: MORPHINE SULFATE 10 MG/ML INJ 1ML SDV IV PRN (17:45)
[2018-09-15] MEDS ORDERED: ONDANSETRON HCL 4 MG/2 ML VIAL IV PRN (17:45)
[2018-09-15] MEDS: MORPHINE SULFATE 10 MG/ML INJ 1ML SDV IV PRN ×2 (18:06→22:08)
--- NOTE | 2018-09-15 19:48 | NUR ---
CLOSING NOTE ENDORSED CARE TO NUBIA TAMAYO.
--- NOTE | 2018-09-15 19:55 | NUR ---
RECEIVED PATIENT FROM DAY SHIFT RN. PATIENT RESTING IN BED. NO S/S OF DISTRESS NOTED. C/O PAIN @ 6/10 AFTER MEDICATION GIVEN EARLIER. REVIEWED SCHEDULE OF PAIN MANAGEMENT WITH PATIENT. WILL COME BACK FOR PAIN MEDICATION LATER WHEN THE TIME IS DUE AND PER PATIENT REQUEST. ABD BINDER IN PLACE. DRESSING ON ABD D/C/I. REINFORCED PATIENT NPO NOW . PATIENT STATED THAT SHE DID PASS THE GAS. POC INSTRUCTED AND ENCOURAGED PATIENT TO CALL FOR ORTHODONTIC LABORATORY TECHNICIAN IF NEEDED. BED IN LOWEST POSITION WITH SIDE RAILS UP X 2. CALL HERNÁNDEZ WITHIN REACH. ALARM ON. CONTINUE TO MONITOR FOR CHANGES Q1H AND PRN .
[2018-09-15 22:00] VITALS: BP 112/63
--- NOTE | 2018-09-15 22:15 | NUR ---
PATIENT C/O PAIN @ 04/09. MEDICATED PATIENT ORDERED. CONTINUE TO MONITOR.
[2018-09-15] MEDS: LORazepam 2MG/ML-1ML VIAL IV PRN (23:48)
--- NOTE | 2018-09-16 01:25 | NUR ---
ASSISTED PATIENT TO TRANSFERD TO [address]. PATIENT WALKED WITH STEADY GAIT. NO S/S OF
--- NOTE | 2018-09-16 01:26 | NUR ---
ASSISTED PATIENT TO TRANSFER TO [address]. PATIENT WALKED WITH STEADY GAIT. NO S/S OF DISTRESS NOTED. CONTINUE TO MONITOR.
[2018-09-16] MEDS: MORPHINE SULFATE 10 MG/ML INJ 1ML SDV IV PRN ×3 (02:45→17:35)
--- NOTE | 2018-09-16 02:45 | NUR ---
PATIENT C/O PAIN @ 03/09. MEDICATED PATIENT ORDERED. CONTINUE TO MONITOR.
[2018-09-16 05:00] VITALS: BP 118/68
--- NOTE | 2018-09-16 06:43 | NUR ---
PATIENT C/O PAIN @04/09. MEDICATED PATIENT ORDERED. CONTINUE TO MONITOR.
[2018-09-16 06:54] LABS: Basophils # (auto) 0 uL; Basophils % (auto) 0.5 % (0.0-2.0); Eosinophils # (auto) 0.1 uL; Eosinophils % (auto) 1.9 % (0.0-7.0); Hematocrit 38.5 % (36.0-46.0); Hemoglobin 12.6 g/dL (12.2-16.2); Lymphocytes # (auto) 1.3 uL; Mean Corpuscular Hemoglobin 29.6 pg (28.0-32.0); Mean Corpuscular Hgb Conc. 32.7 g/dL (32.0-36.0); Mean Corpuscular Volume 90.6 fL (80.0-100.0); Monocytes # (auto) 0.4 uL; Monocytes % (auto) 5.7 % (0.0-12.0); Neutrophils # (auto) 4.6 uL; Neutrophils % (auto) 71.9 % (37.0-80.0); Nucleated Red Blood Cells % 0.1 %; Platelet Count (auto) 236 10^3/uL (140-450); Red Blood Cells 4.25 10^6/uL (4.0-5.20); Red Cell Distribution Width 13.8 % (11.8-14.3); White Blood Cell 6.4 10^3/uL (4.4-10.8)
--- NOTE | 2018-09-16 06:59 | NUR ---
PATIENT C/O ITCHING ON HER RAC, REDNESS NOTED. APPLIED ON HARMAN TOWER TO SEE WHETHER IT HELPS. PASS TO DAY SHIFT RN TO FOLLOW UP. CONTINUE TO MONITOR.
[2018-09-16 07:20] LABS: Albumin 3.1 g/dL (3.4-5.0); Anion Gap 4 (5-15); Calcium 7.5 mg/dL (8.5-10.1); Carbon Dioxide 25 mmol/L (21-32); Chloride 110 mmol/L (98-107); Glucose 107 mg/dL (74-106); Potassium 3.7 mmol/L (3.5-5.1); Sodium 139 mmol/L (136-145)
[2018-09-16 07:23] LABS: Alanine Aminotransferase 79 U/L (13-56); Alkaline Phosphatase 91 U/L (45-117); Aspartate Aminotransferase 37 U/L (15-37); Bilirubin, Total 0.6 mg/dL (0.2-1.0); GFR African American > 60 mL/min; GFR Non-African American > 60 mL/min; Total Protein 6.4 g/dL (6.4-8.2)
--- NOTE | 2018-09-16 07:35 | NUR ---
OPENING NOTE ASSUMED CARE OF PT. PT IS LAYING ON BED, HOB SEMI-FOWLERS. PT IS A&O X4. ON ROOM AIR. O2 SATURATION 94%. NO SIGNS OF SOB/DISTRESS NOTED. ABDOMINAL DRESSING CLEAN, DRY AND INTACT. SAFETY PRECAUTIONS IN PLACE INCLUDING BED SET TO BED SET TO LOWEST POSITION/LOCKED. BEDSIDE RAILS UP X2. CALL LIGHT WITHIN REACH. INSTRUCTED PT TO CALL FOR ASSISTANCE. DISCUSSED POC WITH PT. PT VERBALIZED UNDERSTANDING. WILL CONTINUE TO MONITOR Q 1HR AND PRN.
[2018-09-16] MEDS: LORazepam 2MG/ML-1ML VIAL IV PRN ×3 (08:24→21:09)
[2018-09-16 09:00] VITALS: BP 130/70
[2018-09-16 10:24] LABS: BUN/Creatinine Ratio 19.4; Blood Urea Nitrogen 12 mg/dL (7-18)
[2018-09-16] MEDS: PANTOPRAZOLE 40 MG/10 ML VIAL IV SCH (10:58)
[2018-09-16 13:00] VITALS: BP 128/71
[2018-09-16] MEDS ORDERED: HYDROcodone-ACET 5/325MG TAB PO PRN (13:15)
--- NOTE | 2018-09-16 17:00 | NUR ---
PT REPORTS THAT SHE HAS BEEN WALKING FINE BUT NEEDS FWW TO USE IN HOSPITAL BECAUSE OF PAIN. PATIENT DENIES NEED FOR P.T.
[2018-09-16 17:13] VITALS: BP 138/80
--- NOTE | 2018-09-16 19:00 | NUR ---
CLOSING NOTE ENDORSED CARE TO NUBIA TAMAYO.
--- NOTE | 2018-09-16 19:50 | NUR ---
RECEIVED PATIENT FROM DAY SHIFT RN. PATIENT RESTING IN BED. FAMILY AT BEDSIDE. NO S/S OF DISTRESS NOTED. C/O DULL PAIN ON HER RIGHT CHEST AND RADIATED TO RIGHT ARM . PATENT JUST HAD PAIN MEDICATION EARLIER, PATIENT UNDERSTOOD THAT SHE IS NOT DUE FOR PAIN MEDICATION. PUT PATIENT ON OXYGEN 2L/NC. CONTINUE TO MONITOR.
--- NOTE | 2018-09-16 20:20 | NUR ---
PAGED HOSPITALIST FOR ANOTHER PATIENT, WAITING FOR CALL BACK TO GET CHANCE TO TALK TO HIM. CONTINUE TO MONITOR.
--- NOTE | 2018-09-16 21:00 | NUR ---
HOSPITALIST Called/paged MONIKA COLON called re: PATENT HAD SX YESTERDAY, NOW C/O CHEST PAIN AND RADIATING TO RIGHT ARM. EKG DONE, SHOWED SR 87. VITALS, TEMP 98.3, RR 17, O2 SAT 97% ON RA, BP 160/94. Waiting for call back. Continue care.
--- NOTE | 2018-09-16 21:15 | NUR ---
HOSPITALIST returned call MONIKA COLON returned call, updated on patient status and reason for call, orders received. TROP STAT. Continue care.
--- NOTE | 2018-09-16 21:19 | NUR ---
CALLING PHLEBOTOMY FOR STAT LAB TEST.
--- NOTE | 2018-09-16 21:57 | NUR ---
LAB PHLEBOTOMY AT BEDSIDE FOR LAB TEST. CONTINUE CARE.
[2018-09-16 22:00] VITALS: BP 160/94
--- NOTE | 2018-09-16 22:30 | NUR ---
PATIENT TRANSFERRED TO [facility] FOR ISOLATION VIA HOSPITAL BED. NO S/S OF DISTRESS NOTED. CONTINUE TO MONITOR.
--- NOTE | 2018-09-16 22:54 | NUR ---
IV insertion IV access obtained, via clean sterile technique by inserting [22] gauge catheter at [RFA] after [1] attempt(s). IV secured properly. No trauma to site. Patient tolerated well. PATIENT C/O PAIN ON PREVIOUS IV SITE, IV DC'd with clean sterile technique, catheter fully intact. Pressure dressing applied to site. Patient tolerated well. NOTE: []
--- NOTE | 2018-09-16 22:55 | NUR ---
PATIENT C/O DULL PAIN ON RIGHT CHEST AND RADIATE TO RIGHT ARM. PATIENT REFUSED TO HAVE PAIN MEDICATION FOR NOW. CONTINUE TO MONITOR.
--- NOTE | 2018-09-17 00:12 | NUR ---
HOSPITALIST Called/paged MONIKA COLON called re:PATIENT'S TROP RESULT BACK < 0.015, PATIENT STILL C/O PAIN AND WOULD LIKE TO HAVE DIFFERENT PAIN MEDICATION. Waiting for call back. Continue care.
--- NOTE | 2018-09-17 00:44 | NUR ---
HOSPITALIST returned call MONIKA COLON returned call, updated on patient status and reason for call, NO CHANGE ON PAIN MEDICATION. AND LAB FOR D-DIMER. Continue care.
--- NOTE | 2018-09-17 00:45 | NUR ---
PATIENT AWARE OF ORDER FROM HOSPITALIST, OFFERED PATIENT NORCO OR MORPHINE FOR PAIN NOW. PATIENT REFUSED TO TAKE THOSE MEDICATIONS. WAITING FOR LAB TEST. CONTINUE TO MONITOR.
--- NOTE | 2018-09-17 00:48 | NUR ---
CALLED LAB CENTER FOR STAT D-DIMER. WAITING FOR PHLEBOTOMY. CONTINUE TO MONITOR.
--- NOTE | 2018-09-17 02:02 | NUR ---
D-DIMER RESULT OUT, NEGATIVE. CONTINUE TO MONITOR.
[2018-09-17] MEDS: MORPHINE SULFATE 10 MG/ML INJ 1ML SDV IV PRN ×3 (02:20→13:50)
--- NOTE | 2018-09-17 02:26 | NUR ---
PATIENT REQUESTED TO HAVE PAIN MEDIATION NOW FOR PAIN @ 05/10. MEDICATED PATIENT ORDERED. CONTINUE TO MONITOR.
[2018-09-17 05:00] VITALS: BP 119/69
--- NOTE | 2018-09-17 06:07 | NUR ---
PATIENT RESTING IN BED. NO S/S OF DISTRESS NOTED. STATED PAIN IS BETTER NOW. NO REQUEST FOR PAIN MEDICATION NOW. PATIENT UNDERSTOOD HER MANAGEMENT SCHEDULE, WILL CALL FOR PAIN MEDICATION IF SHE COULD NOT TOLERATE THE PAIN. CONTINUE TO MONITOR.
--- NOTE | 2018-09-17 07:10 | NUR ---
OPENING NOTE ASSUMED CARE OF PT. PT IS LAYING ON BED, HOB SEMI-FOWLERS. PT IS A&O X4. ON ROOM AIR. O2 SATURATION 95%. NO SIGNS OF SOB/DISTRESS NOTED. ABDOMINAL DRESSING CLEAN, DRY AND INTACT. SAFETY PRECAUTIONS IN PLACE INCLUDING BED SET TO BED SET TO LOWEST POSITION/LOCKED. BEDSIDE RAILS UP X2. CALL LIGHT WITHIN REACH. INSTRUCTED PT TO CALL FOR ASSISTANCE. DISCUSSED POC WITH PT. PT VERBALIZED UNDERSTANDING. WILL CONTINUE TO MONITOR Q 1HR AND PRN.
[2018-09-17 08:58] VITALS: BP 132/78
[2018-09-17] MEDS: PANTOPRAZOLE 40 MG/10 ML VIAL IV SCH (10:49)
[2018-09-17 12:39] VITALS: BP 133/70
[2018-09-17] MEDS: LORazepam 2MG/ML-1ML VIAL IV PRN (15:12)
--- NOTE | 2018-09-17 15:30 | NUR ---
Discharge instructions given as ordered. Encourage to follow up with PMD as instructed. All questions and concerns addressed. Patient verbalized understanding. No home medications held in Pharmacy and no vaccines given. IV removed with catheter intact, pressure dressing applied.
[2018-09-17 16:35] VITALS: BP 130/73
--- NOTE | 2018-09-17 18:07 | NUR ---
Patient taken to vehicle via wheelchair with all personal belongings, accompanied by staff and family member. No distress noted at time of departure.
== END 2018-09-17 23:33 | disposition home or self-care (01) | DRG 355 ==
LOC: ER 09:08 → OR 1 11:04 → TELE-WESTW 17:13 → WEST WING 19:08
PROVIDERS: ADMIT Surgery; ATTEND Internal Medicine
PROC: 0WUF0JZ Supplement Abdominal Wall with Synthetic Substitute, Open Approach (ICD-10-PCS; principal; 2018-09-15 13:39)
DX: K43.2 Incisional hernia without obstruction or gangrene (principal); E66.9 Obesity, unspecified; F41.9 Anxiety disorder, unspecified; K59.00 Constipation, unspecified; Z82.49 Family history of ischemic heart disease and other diseases of the circulatory system; Z68.35 Body mass index [BMI] 35.0-35.9, adult; Z87.59 Personal history of other complications of pregnancy, childbirth and the puerperium; Z90.49 Acquired absence of other specified parts of digestive tract
CPT/HCPCS: 36415; 71046; 74022; 80053; 81001; 83690; 83735; 84484; 84702; 85025; 85379; 85610; 85730; C9113; G0378; J0330; J0690; J1885; J2250; J2405; J2704

== ENCOUNTER 2019-09-25 10:15 | Observation (INO) | payer BC, MEDICAID ==
[~2019-09-25] VITALS: Ht 165.1 cm; Wt 101.2 kg
[2019-09-25] MEDS ORDERED: PREN-96 PO (10:53)
[2019-09-25] MEDS ORDERED: ONDANSETRON HCL 4 MG/2 ML VIAL IV ONE (11:15)
[2019-09-25] MEDS ORDERED: LACTATED RINGER'S 1,000 ML IV ONE (11:15)
[2019-09-25] MEDS: TERBUTALINE SULFATE 1 MG/ML 1ML VIAL SC SCH ×2 (11:24→12:51)
== END 2019-09-25 14:01 | disposition home or self-care (01) | DRG 566 ==
LOC: LDRP 10:15
PROVIDERS: ADMIT Obstetrics & Gynecology; ATTEND Obstetrics & Gynecology
DX: O99.89 Other specified diseases and conditions complicating pregnancy, childbirth and the puerperium (principal); E86.0 Dehydration; O21.2 Late vomiting of pregnancy; O26.893 Other specified pregnancy related conditions, third trimester; R19.7 Diarrhea, unspecified; Z3A.35 35 weeks gestation of pregnancy
CPT/HCPCS: 59025; 81002; 96361; 96372; 96374; G0378; J2405; J3105; 96365; 96366; 96375

== ENCOUNTER 2020-04-20 05:06 | Emergency (ER) | payer MEDICAID ==
[~2020-04-20] VITALS: Ht 165.1 cm; Wt 102.1 kg
[2020-04-20 05:10] VITALS: BP 105/68
[2020-04-20] MEDS ORDERED: KETOROLAC TROMETH 60MG/2ML VIAL IM ONE (07:15)
== END 2020-04-20 07:55 | disposition home or self-care (01) ==
LOC: EDBD 05:06 → ER 05:06
DX: S83.91XA Sprain of unspecified site of right knee, initial encounter (principal); W18.39XA Other fall on same level, initial encounter; Y93.89 Activity, other specified; Y92.89 Other specified places as the place of occurrence of the external cause; Y99.8 Other external cause status
CPT/HCPCS: 73562; 96372; 99283; J1885

== ENCOUNTER 2023-12-29 16:39 | Emergency (ER) | payer MEDICAID ==
[~2023-12-29] VITALS: Ht 162.6 cm; Wt 96.9 kg
[2023-12-29 16:45] VITALS: BP 152/83; PULSE 94; RESP 17; O2SAT 95
[2023-12-29 17:15] LABS: Urine Bacteria None Seen /hpf (None Seen)
[2023-12-29 17:19] LABS: Urine Blood Negative /uL (Negative); Urine Clarity Clear (Clear); Urine Color Light-Yellow (Yellow); Urine Protein, UAD Negative (Negative); Urine Specific Gravity 1.018 (1.001-1.035); Urine Urobilinogen Normal (Negative); Urine WBC 1 /hpf (0 - 5)
[2023-12-29 18:26] LABS: Alanine Aminotransferase 29 U/L (7-40); Albumin 4.5 g/dL (3.2-4.8); Alkaline Phosphatase 80 U/L (46-116); Anion Gap 8 (5-15); Aspartate Aminotransferase 14 U/L (13-40); BUN/Creatinine Ratio 18.8 (10.0-20.0); Bilirubin, Total 0.3 mg/dL (0.2-1.0); Blood Urea Nitrogen 12 mg/dL (9-23); Calcium 8.9 mg/dL (8.7-10.4); Carbon Dioxide 22 mmol/L (20-30); Chloride 110 mmol/L (98-107); Glucose 100 mg/dL (74-106); Lipase 40 U/L (12-53); Potassium 3.9 mmol/L (3.5-5.1); Sodium 140 mmol/L (136-145); Total Protein 7.2 g/dL (5.7-8.2)
[2023-12-29 18:53] LABS: Basophils # (auto) 0 10 ^3/uL (0-0.2); Basophils % (auto) 0.4 % (0.0-2.0); Eosinophils # (auto) 0.1 10 ^3/uL (0-0.8); Eosinophils % (auto) 1.3 % (0.0-7.0); Hematocrit 40.3 % (36.0-46.0); Hemoglobin 13.2 g/dL (12.2-16.2); Lymphocytes # (auto) 2.4 10 ^3/uL (0.4-5.4); Lymphocytes % (auto) 27.9 % (10.0-50.0); Mean Corpuscular Hemoglobin 28.7 pg (28.0-32.0); Mean Corpuscular Hgb Conc. 32.8 g/dL (32.0-36.0); Mean Corpuscular Volume 87.4 fL (80.0-100.0); Monocytes # (auto) 0.4 10 ^3/uL (0-1.3); Monocytes % (auto) 5.2 % (0.0-12.0); Neutrophils # (auto) 5.5 10 ^3/uL (1.6-8.6); Neutrophils % (auto) 65.2 % (37.0-80.0); Nucleated Red Blood Cells % 0.1 %; Red Blood Cells 4.61 10^6/uL (4.0-5.20); Red Cell Distribution Width 13.9 % (11.8-14.3); White Blood Cell 8.4 10^3/uL (4.4-10.8)
[2023-12-29] MEDS ORDERED: ZOFR4T PO (20:38)
[2023-12-29] MEDS ORDERED: HYDR-4902 PO (20:38)
== END 2023-12-29 21:25 | disposition home or self-care (01) ==
LOC: ER 16:39
DX: K43.9 Ventral hernia without obstruction or gangrene (principal); K42.9 Umbilical hernia without obstruction or gangrene; Z98.890 Other specified postprocedural states; M62.08 Separation of muscle (nontraumatic), other site; R10.2 Pelvic and perineal pain; Z90.49 Acquired absence of other specified parts of digestive tract
CPT/HCPCS: 36415; 74176; 80053; 81001; 83690; 84702; 85025